=== PATIENT | male | born 1970 | race Caucasian/White ===

== ENCOUNTER 2017-06-07 13:12 | Outpatient (CLI) | payer OTHER | END 2017-06-07 13:13 | disposition home or self-care (01) | LOC: SC 13:12 | PROVIDERS: ATTEND Internal Medicine Pulmonary Disease | DX: G47.33 Obstructive sleep apnea (adult) (pediatric) (principal) | CPT/HCPCS: 99212; 99213 ==

== ENCOUNTER 2018-06-20 15:40 | Outpatient (CLI) | payer OTHER | END 2018-06-20 15:41 | disposition home or self-care (01) | LOC: SC 15:40 | PROVIDERS: ATTEND Nurse Practitioner Family | DX: G47.33 Obstructive sleep apnea (adult) (pediatric) (principal) | CPT/HCPCS: 99212; 99214 ==

== ENCOUNTER 2019-04-03 | Outpatient (CLI) | payer OTHER | END 2019-04-03 14:42 | disposition home or self-care (01) | DX: G47.33 Obstructive sleep apnea (adult) (pediatric) (principal) | CPT/HCPCS: 99212; 99215 ==